=== PATIENT | male | born 1945 | race Caucasian/White ===

== ENCOUNTER → 2017-01-26 | Outpatient (CLI) | payer MEDICARE, OTHER ==
--- NOTE | 2017-01-26 09:33 | RAD ---
EXAM DESCRIPTION: Knee,Left Complete CLINICAL HISTORY: 71 years, Male, KNEE PAIN COMPARISON: None available FINDINGS: No fracture or dislocation. Mild narrowing the patellofemoral joint space with spurring. On the flexed frontal projection slight irregularity of the left lateral femoral articular surface noted is probably degenerative or posttraumatic. Some mild prepatellar soft tissue swelling. Possible small joint effusion IMPRESSION: Mild degenerative change. No acute fracture. Possible small joint effusion present Electronically signed by: Inocente Goodman MD 01/26/2017 9:33 AM CDT
--- NOTE | 2017-01-26 09:34 | RAD ---
EXAM DESCRIPTION: Pelvis CLINICAL HISTORY: 71 years, Male, BI LAT HIP PAIN COMPARISON: None. FINDINGS: No fracture or dislocation. Mild degenerative narrowing of both hips spurring. Slight irregularity of the femoral head neck junction laterally, more on the right. This is a normal variant often associated with impingement IMPRESSION: No fracture or dislocation. Mild degenerative change. Electronically signed by: Inocente Goodman MD 01/26/2017 9:34 AM CDT
--- NOTE | 2017-01-26 09:36 | RAD ---
EXAM DESCRIPTION: Knee,Right Complete CLINICAL HISTORY: 71 years, Male, KNEE PAIN COMPARISON: None. FINDINGS: No fracture or dislocation. Mild narrowing of the patellofemoral joint space. Mild prepatellar soft tissue swelling IMPRESSION: No fracture or dislocation. Mild degenerative change Electronically signed by: Inocente Goodman MD 01/26/2017 9:35 AM CDT
== END | disposition home or self-care (01) ==
LOC: RAD 08:00
PROVIDERS: ATTEND Orthopaedic Surgery
DX: M25.561 Pain in right knee (principal); M25.551 Pain in right hip; M25.562 Pain in left knee; M25.552 Pain in left hip

== ENCOUNTER → 2017-02-06 | Outpatient (CLI) | payer MEDICARE, OTHER | LOC: LAB.O 07:11 | PROVIDERS: ATTEND Psychiatry & Neurology Neurology | DX: F90.9 Attention-deficit hyperactivity disorder, unspecified type (principal); M45.0 Ankylosing spondylitis of multiple sites in spine; M33.90 Dermatopolymyositis, unspecified, organ involvement unspecified; F81.9 Developmental disorder of scholastic skills, unspecified; M35.1 Other overlap syndromes; G70.00 Myasthenia gravis without (acute) exacerbation; G04.89 Other myelitis; M81.8 Other osteoporosis without current pathological fracture; M35.3 Polymyalgia rheumatica; M33.22 Polymyositis with myopathy; G61.81 Chronic inflammatory demyelinating polyneuritis; I73.00 Raynaud's syndrome without gangrene; G25.89 Other specified extrapyramidal and movement disorders; M06.9 Rheumatoid arthritis, unspecified; D86.9 Sarcoidosis, unspecified; M35.00 Sjogren syndrome, unspecified; M32.10 Systemic lupus erythematosus, organ or system involvement unspecified; M31.6 Other giant cell arteritis; G50.0 Trigeminal neuralgia; I77.9 Disorder of arteries and arterioles, unspecified; R41.3 Other amnesia ==

== ENCOUNTER → 2017-02-25 | Outpatient (CLI) | payer MEDICARE, OTHER ==
--- NOTE | 2017-02-26 19:11 | MRI ---
EXAM DESCRIPTION: Cervical Spine CLINICAL HISTORY: CERVICAL DISC DISORDER COMPARISON: None Available. TECHNIQUE: Multiplanar images of the cervical spine were submitted without the administration of contrast FINDINGS: Normal cervical alignment and straightening of the normal lordosis. There is anterior fusion which extends from C5 to C7. This results in metallic susceptibility artifact. Craniovertebral junction and signal within the cervical cord appear unremarkable. No evidence of geographic marrow lesion. There is a small amount of abnormal signal on the inversion recovery sequences at C4 and T1 which I suspect is related to the hardware. C2-3: There is focal area of spurring posterolaterally on the left which indents the left lateral recess slightly without significant central canal or neural foraminal narrowing. C3-4: There is mild generalized disc bulging and osteophytosis which results in bilateral neural foraminal narrowing. C4-5: Small central area of disc protrusion without central canal stenosis. Mild left neural foraminal narrowing. C5-6 and C6-7: Axial images are limited by artifact. There does not appear to be central canal stenosis. Suspect left neural foraminal stenosis at C5-6 and C6-7. C7-T1 level is unremarkable. IMPRESSION: Spinal fusion extending from C5 to C7. Suspect mild left neural foraminal stenosis at C5-6 and C6-7 but no significant central canal stenosis Additional degenerative changes as above Electronically signed by: Debi Escamilla 02/26/2017 7:10 PM CDT
== END ==
LOC: MRI 10:40
PROVIDERS: ATTEND Psychiatry & Neurology Neurology
DX: M50.122 Cervical disc disorder at C5-C6 level with radiculopathy (principal); G61.81 Chronic inflammatory demyelinating polyneuritis; Z98.1 Arthrodesis status

== ENCOUNTER → 2018-02-10 | Outpatient (CLI) | payer MEDICARE, OTHER | LOC: GMAJS 11:23 | PROVIDERS: ATTEND Physician Assistant | DX: R53.81 Other malaise (principal); R53.83 Other fatigue; Z12.5 Encounter for screening for malignant neoplasm of prostate | CPT/HCPCS: 84402; 84403; 84439; 84443; G0103 ==

== ENCOUNTER → 2018-11-29 | Outpatient (CLI) | payer MEDICARE, OTHER ==
--- NOTE | 2018-11-29 19:33 | RAD ---
EXAM DESCRIPTION: Chest,2 Views CLINICAL HISTORY: 73 years Male CHEST PAIN COMPARISON: None. FINDINGS: The cardiomediastinal silhouette appears unremarkable. No consolidating infiltrates or pleural effusions. No pneumothorax. Lungs appear hyperinflated. Post surgical changes in the cervical spine. IMPRESSION: No acute abnormality is identified. Electronically signed by: Debi Escamilla MD 11/29/2018 7:30 PM CDT
== END ==
LOC: LAB.O 18:34
PROVIDERS: ATTEND Nurse Practitioner Family
DX: R07.89 Other chest pain (principal)

== ENCOUNTER → 2019-01-05 | Outpatient (CLI) | payer MEDICARE, OTHER ==
--- NOTE | 2019-01-06 08:06 | CT ---
EXAM DESCRIPTION: Chest w/Contrast CLINICAL HISTORY: 73 years, Male, COPD, COUGH COMPARISON: Correlation is made with chest x-ray November 29, 2018 TECHNIQUE: Thin-section noncontrast axial CT images are obtained according to our protocol. Reconstructed MPR images are created and reviewed as well. FINDINGS: Lungs: No consolidating pulmonary infiltrate or groundglass infiltrate. Minimal linear scarring in the right middle lobe and lingula. Minimal subpleural granulomatous scarring in the right lower lobe. No worrisome pulmonary mass or nodule. Mediastinum: Plate and screws in the lower C-spine. Lymph nodes are normal in size. Normal vascular contours. Heart size is normal with no pericardial effusion. Chest wall/axilla: No mass or adenopathy. Lower neck/supraclavicular: No mass or adenopathy. Upper abdomen: Unremarkable upper abdominal viscera. Coronal and sagittal reformatted images confirm the findings. IMPRESSION: No consolidating infiltrate. This exam was performed according to our departmental dose-optimization program, which includes automated exposure control, adjustment of the mA and/or kV according to patient size and/or use of iterative reconstruction technique. Total DLP equals 601.4 mGycm. Electronically signed by: Art Mcqueen MD 01/06/2019 8:04 AM CDT
== END ==
LOC: CT 09:11
PROVIDERS: ATTEND Family Medicine
DX: J44.1 Chronic obstructive pulmonary disease with (acute) exacerbation (principal); R53.82 Chronic fatigue, unspecified

== ENCOUNTER → 2019-04-04 | Outpatient (CLI) | payer MEDICARE, OTHER | LOC: GMAM 16:43 | PROVIDERS: ATTEND Family Medicine | DX: E53.8 Deficiency of other specified B group vitamins (principal); E55.9 Vitamin D deficiency, unspecified; R00.1 Bradycardia, unspecified; Z12.5 Encounter for screening for malignant neoplasm of prostate | CPT/HCPCS: 82306; 82607; G0103 ==

== ENCOUNTER → 2019-06-29 | Outpatient (CLI) | payer MEDICARE, OTHER | LOC: GMAM 11:14 | PROVIDERS: ATTEND Family Medicine | DX: R79.0 Abnormal level of blood mineral (principal) ==

== ENCOUNTER → 2020-07-06 | Outpatient (CLI) | payer MEDICARE, OTHER | LOC: GMAM 13:49 | PROVIDERS: ATTEND Family Medicine | DX: R53.83 Other fatigue (principal); E53.8 Deficiency of other specified B group vitamins; E55.9 Vitamin D deficiency, unspecified; E78.2 Mixed hyperlipidemia ==

== ENCOUNTER 2020-08-31 05:48 | Day surgery (SDC) | payer MEDICARE, OTHER ==
[2020-08-31] MEDS ORDERED: LIDOCAINE 1% 10 ML VIAL INJ ONE (05:49)
[2020-08-31] MEDS ORDERED: PROPOFOL 200 MG/20 ML VIAL IV ONE (05:49)
[2020-08-31] MEDS ORDERED: LACTATED RINGERS 1,000 ML ONE (06:42)
--- NOTE | 2020-08-31 10:16 | OP ---
DATE OF PROCEDURE: 08/31/20 PREOPERATIVE DIAGNOSIS: 1. Screening colonoscopy. POSTOPERATIVE DIAGNOSIS: 1. Normal colon. 2. Diverticulosis. PROCEDURE: 1. Colonoscopy. SURGEON: Dilan Nogueira MD PROCEDURE: IV general anesthesia was induced in the lateral position. Digital rectal exam was normal. The colonoscope was inserted without difficulty. A few diverticula were noted upon insertion. We got to the cecum as identified by the cecum and also intubating the terminal ileum, which was normal. Upon withdrawal, the mucosal surfaces appeared normal. Diverticulosis was seen, a small amount of the right, more significant on the left. No sign of bleeding. Rectum was normal. There was an adequate prep. The scope was negative overall. The patient tolerated the procedure and was taken to Recovery to be discharged. #[id number] cc: Gavino Hughes MD MTDD
[2020-08-31 10:52] VITALS: BP 128/81; TEMP 97; O2SAT 96
== END 2020-08-31 10:45 | disposition home or self-care (01) ==
LOC: AMB 05:48
PROVIDERS: ATTEND Surgery
DX: Z12.11 Encounter for screening for malignant neoplasm of colon (principal); K57.30 Diverticulosis of large intestine without perforation or abscess without bleeding; E78.00 Pure hypercholesterolemia, unspecified; N40.0 Benign prostatic hyperplasia without lower urinary tract symptoms; Z88.5 Allergy status to narcotic agent; Z88.8 Allergy status to other drugs, medicaments and biological substances; Z87.891 Personal history of nicotine dependence; Z87.19 Personal history of other diseases of the digestive system; Z79.899 Other long term (current) drug therapy
CPT/HCPCS: 00812; G0121; J3490; J7120